=== PATIENT | male | born 1970 | race Hispanic/Latino ===

== ENCOUNTER 2016-06-22 10:04 | Outpatient (CLI) | payer OTHER | END 2016-06-22 10:05 | disposition home or self-care (01) | LOC: MADLAB 10:04 | PROVIDERS: ATTEND Internal Medicine Nephrology | DX: N04.1 Nephrotic syndrome with focal and segmental glomerular lesions (principal); B50.9 Plasmodium falciparum malaria, unspecified; N18.5 Chronic kidney disease, stage 5; R80.9 Proteinuria, unspecified ==

== ENCOUNTER 2016-08-06 08:10 | Outpatient (CLI) | payer OTHER ==
[2016-08-06 08:20] LABS: Mean Corpuscular HGB CONC 34.6 g/dL (32.0-36.0); Mean Corpuscular Hemoglobin 33.1 pg (27.0-31.0); Mean Corpuscular Volume 95.5 fl (80.0-94.0); Mean Platelet Volume 7.5 fL (7.4-10.4); Platelet Count 127 thou/uL (130-400); RBC Distribution Width 11.8 % (11.5-14.5); Red Blood Cell (RBC) Count 3.03 mill/uL (4.70-6.10); White Blood Cell (WBC) Count 3.7 thou/uL (4.8-10.8)
[2016-08-06 08:35] LABS: Albumin 4.3 g/dL (3.5-5.0); Anion Gap 24 mmol/L (10-20); Calc. Creatinine Clearance 0 mL/min (70-130); Carbon Dioxide 17 mmol/L (22-29); Chloride 102 mmol/L (98-107); Estimated GFR-MDRD 4; Glucose 97 mg/dL (70-105); Phosphorus 8.4 mg/dL (2.3-4.7); Potassium 4.5 mmol/L (3.5-5.1); Sodium 138 mmol/L (136-145)
[2016-08-06 09:00] LABS: BUN (Urea Nitrogen) 124 mg/dL (8.9-20.6); BUN/Creatinine Ratio 8.28; Calcium 5.8 mg/dL (7.8-10.44)
== END 2016-08-06 08:11 | disposition home or self-care (01) ==
LOC: MADLAB 08:10
PROVIDERS: ATTEND Internal Medicine Nephrology
DX: I12.0 Hypertensive chronic kidney disease with stage 5 chronic kidney disease or end stage renal disease (principal); N18.5 Chronic kidney disease, stage 5; B50.9 Plasmodium falciparum malaria, unspecified; R80.9 Proteinuria, unspecified
CPT/HCPCS: 36415; 80069; 85027

== ENCOUNTER 2016-08-13 15:31 | Emergency (ER) | payer MEDICAID, OTHER, SELFPAY ==
[2016-08-13 17:34] LABS: Hemoglobin A1c 5.1 % (4.0-6.0)
[2016-08-13 17:39] LABS: ALT (SGPT) 28 U/L (0-55); AST (SGOT) 34 U/L (5-34); Albumin 4.3 g/dL (3.5-5.0); Alkaline Phosphatase 79 U/L (40-150); Anion Gap 24 mmol/L (10-20); Bilirubin, Total 0.5 mg/dL (0.2-1.2); Calc. Creatinine Clearance 0 mL/min (70-130); Carbon Dioxide 18 mmol/L (22-29); Chloride 99 mmol/L (98-107); Estimated GFR-MDRD 4; Globulin 2.7 g/dL (2.4-3.5); Glucose 99 mg/dL (70-105); Lipase 88 U/L (8-78); Potassium 4.9 mmol/L (3.5-5.1); Sodium 136 mmol/L (136-145); Uric Acid 9.3 mg/dL (3.5-7.2)
[2016-08-13 17:45] LABS: Eosinophils 6 % (0-10); Hemoglobin 9.7 g/dL (14.0-18.0); Lymphocytes 34 % (21-51); MDiff Complete? YES; Mean Corpuscular HGB CONC 34.5 g/dL (32.0-36.0); Mean Corpuscular Hemoglobin 32.9 pg (27.0-31.0); Mean Corpuscular Volume 95.4 fl (80.0-94.0); Mean Platelet Volume 8.8 fL (7.4-10.4); Monocytes 8 % (0-10); Neutrophil 49 % (42-75); Platelet Count 121 thou/uL (130-400); RBC Distribution Width 12.1 % (11.5-14.5); Reactive Lymphocytes 3 % (0-10); Red Blood Cell (RBC) Count 2.96 mill/uL (4.70-6.10); White Blood Cell (WBC) Count 3.6 thou/uL (4.8-10.8)
[2016-08-13 17:49] LABS: BUN (Urea Nitrogen) Greater than 125 mg/dL (8.9-20.6); Calcium 5.8 mg/dL (7.8-10.44)
[2016-08-13] MEDS ORDERED: Calcium Gluc 4.6 MEQ/10 ML (100 MG/ML) ONE ×2 (18:21→18:26)
[2016-08-13] MEDS ORDERED: Calcium Carbonate 500 MG ChewTAB ONE (18:28)
[2016-08-13 18:54] LABS: Bilirubin Negative (Negative); Blood, Urine Small (Negative); Clarity Clear (Clear); Glucose, Urine (Dipstick) 100 mg/dL (Negative); Leukocyte Negative (Negative); Nitrite Negative (Negative); Protein, Urine (Dipstick) > or equal to 300 mg/dL (Neg-Trace); Specific Gravity, Urine 1.015 (1.005-1.030); Urobilinogen 0.2 mg/dL (0.2-1.0)
[2016-08-13 19:00] LABS: Bacteria/HPF Rare-Few HPF (None Seen); Other Microscopic Description C&S SET UP; RBC/HPF 0-3 HPF (0-3); Squamous Epithelial 0-3 HPF (0-3); WBC/HPF 0-3 HPF (0-3)
== END 2016-08-13 20:32 | disposition home or self-care (01) ==
LOC: MADERS 15:31
DX: I12.0 Hypertensive chronic kidney disease with stage 5 chronic kidney disease or end stage renal disease (principal); N18.6 End stage renal disease
CPT/HCPCS: 36415; 80053; 81003; 81015; 83036; 83690; 83735; 84550; 85025; 86140; 87086; 99283

== ENCOUNTER 2016-08-16 16:01 | Emergency (ER) | payer MEDICAID, OTHER, SELFPAY ==
[2016-08-16 16:56] LABS: #Basophils 0.1 thou/uL (0.0-0.2); #Eosinphils 0.4 thou/uL (0.0-0.7); #Lymphocytes 1.3 thou/uL (1.20-3.40); #Monocytes 0.3 thou/uL (0.11-0.59); #Neutrophils 1.9 thou/uL (1.40-6.50); %Basophils 1.8 % (0.0-1.0); %Eosinophils 9.6 % (0.0-10.0); %Lymphocytes 32.7 % (21.0-51.0); %Monocytes 8.6 % (0.0-10.0); %Neutrophils 47.4 % (42.0-75.0); Hemoglobin 9.7 g/dL (14.0-18.0); Mean Corpuscular HGB CONC 35.1 g/dL (32.0-36.0); Mean Corpuscular Hemoglobin 32.9 pg (27.0-31.0); Mean Corpuscular Volume 93.8 fl (80.0-94.0); Mean Platelet Volume 8.9 fL (7.4-10.4); Platelet Count 125 thou/uL (130-400); RBC Distribution Width 11.7 % (11.5-14.5); Red Blood Cell (RBC) Count 2.94 mill/uL (4.70-6.10)
[2016-08-16 17:06] LABS: ALT (SGPT) 22 U/L (0-55); AST (SGOT) 27 U/L (5-34); Albumin 4.3 g/dL (3.5-5.0); Alkaline Phosphatase 92 U/L (40-150); Anion Gap 22 mmol/L (10-20); Bilirubin, Total 0.4 mg/dL (0.2-1.2); Calc. Creatinine Clearance 0 mL/min (70-130); Carbon Dioxide 20 mmol/L (22-29); Chloride 100 mmol/L (98-107); Estimated GFR-MDRD 3; Globulin 2.8 g/dL (2.4-3.5); Glucose 112 mg/dL (70-105); Potassium 4.3 mmol/L (3.5-5.1); Protein, Total 7.1 g/dL (6.0-8.3); Sodium 138 mmol/L (136-145)
[2016-08-16 17:40] LABS: Calcium 5.5 mg/dL (7.8-10.44)
[2016-08-16 18:08] LABS: BUN (Urea Nitrogen) 118 mg/dL (8.9-20.6)
== END 2016-08-16 17:14 | disposition short-term general hospital (02) ==
LOC: MADERS 16:01
DX: I12.9 Hypertensive chronic kidney disease with stage 1 through stage 4 chronic kidney disease, or unspecified chronic kidney disease (principal); N18.9 Chronic kidney disease, unspecified
CPT/HCPCS: 80053; 85025; 99285

== ENCOUNTER 2019-12-29 04:59 | Emergency (ER) | payer BC ==
[2019-12-29] MEDS ORDERED: Aspirin Chewable 81 MG TAB ONE (05:38)
[2019-12-29] MEDS ORDERED: Nitroglycerin 2% Ointment 1 INCH/1 GM Packet ONE (05:38)
[2019-12-29 05:54] LABS: PTT 27.3 sec (22.9-36.1); Prothrombin Time 13.1 sec (12.0-14.7)
[2019-12-29 06:02] LABS: ALT (SGPT) 39 U/L (8-55); AST (SGOT) 35 U/L (5-34); Albumin 4.2 g/dL (3.5-5.0); Alkaline Phosphatase 89 U/L (40-110); Anion Gap 21 mmol/L (10-20); BUN (Urea Nitrogen) 34 mg/dL (8.9-20.6); Bilirubin, Total 1.7 mg/dL (0.2-1.2); CK (CPK) 126 U/L (30-200); Calc. Creatinine Clearance 0 mL/min (70-130); Calcium 8.5 mg/dL (7.8-10.44); Carbon Dioxide 28 mmol/L (22-29); Chloride 96 mmol/L (98-107); D-Dimer Test 2.92 *mcg/mL (0.27-0.43); Estimated GFR-MDRD 8; Globulin 2.9 g/dL (2.4-3.5); Glucose 120 mg/dL (70-105); Lipase 56 U/L (8-78); Potassium 4.2 mmol/L (3.5-5.1); Protein, Total 7.1 g/dL (6.0-8.3); Sodium 141 mmol/L (136-145)
[2019-12-29 06:12] LABS: #Basophils 0.1 thou/uL (0.0-0.2); #Eosinphils 0.1 thou/uL (0.0-0.7); #Lymphocytes 1.2 thou/uL (1.20-3.40); #Monocytes 0.4 thou/uL (0.11-0.59); %Basophils 0.9 % (0.0-1.0); %Eosinophils 2.1 % (0.0-10.0); %Monocytes 5.1 % (0.0-10.0); %Neutrophils 73.9 % (42.0-75.0); Band 6 % (5-11); Eosinophils 2 % (0-10); Hemoglobin 11.5 g/dL (14.0-18.0); Lymphocytes 14 % (21-51); MDiff Complete? YES; Mean Corpuscular HGB CONC 33.7 g/dL (32.0-36.0); Mean Corpuscular Hemoglobin 33.4 pg (27.0-31.0); Mean Platelet Volume 9.4 fL (7.4-10.4); Monocytes 6 % (0-10); Neutrophil 72 % (42-75); Platelet Count 70 thou/uL (130-400); RBC Distribution Width 11.6 % (11.5-14.5); Red Blood Cell (RBC) Count 3.44 mill/uL (4.70-6.10); White Blood Cell (WBC) Count 6.8 thou/uL (4.8-10.8)
[2019-12-29 06:21] LABS: CKMB 0.8 ng/mL (0-6.6)
--- NOTE | 2019-12-29 07:09 | RAD ---
SINGLE VIEW CHEST: Date: 12/29/2019 COMPARISON: 12/02/2018. HISTORY: Chest pain and flank pain. FINDINGS: Single view of the chest shows a normal sized cardiomediastinal silhouette. There is no evidence of c onsolidation, mass, or pleural effusion. The bones are unremarkable. IMPRESSION: No evidence of acute cardiopulmonary disease. POS: EAA
[2019-12-29] MEDS ORDERED: Enoxaparin Sodium 100 MG/ML SYRINGE ONE (07:20)
--- NOTE | 2019-12-29 07:22 | CT ---
CT OF THE BRAIN WITHOUT CONTRAST: Date: 12/29/2019 COMPARISON: 08/28/2018. HISTORY: Altered mental status. TECHNIQUE: Multiple contiguous axial images were obtained in a CT of the brain without contrast. Sagittal and co oscar reformats were performed. FINDINGS: The brain is normal in morphology and attenuation without focal lesions or confluent areas of infarct ion. There is no evidence of hydrocephalus, intracranial hemorrhage, or extra-axial fluid collection. The calvarium and overlying soft tissues are unremarkable. The visualized paranasal sinuses and masto id air cells are well aerated. IMPRESSION: No evidence of acute intracranial abnormality. POS: EAA
[2019-12-29] MEDS ORDERED: Sodium Chloride 0.9% 100 ML BAG ONE (07:45)
[2019-12-29] MEDS ORDERED: Morphine 4 MG/ML VIAL ONE (08:52)
--- NOTE | 2019-12-29 09:09 | CT ---
CTA CHEST WITH CONTRAST: Date: 12/29/2019 HISTORY: Chest pain. TECHNIQUE: Multiple contiguous axial images were obtained in a CTA of the chest with contrast per pulmonary embo lism protocol. 3D oblique MIP reformats and direct coronal reformats were performed. FINDINGS: Global cardiomegaly is seen. There is a small pericardial effusion. The pulmonary arteries are well o pacified without filling defects to suggest pulmonary emboli. There are small bilateral pleural effusions. A calcified granuloma is seen in the right upper lobe. N o focal infiltrates are seen. No pneumothorax is seen. Chest wall soft tissues and visualized subdiaphragmatic structures are unremarkable. The bones are un remarkable. IMPRESSION: 1. No evidence of pulmonary thromboembolism. 2. Bilateral pleural effusions. 3. Pericardial effusion. POS: EAA
[2019-12-29] MEDS ORDERED: Iopamidol 370 76% 125 ML VIAL FS ONE (11:47)
== END 2019-12-29 09:09 | disposition short-term general hospital (02) ==
LOC: MADERS 04:59
DX: I31.3 Pericardial effusion (noninflammatory) (principal); R79.9 Abnormal finding of blood chemistry, unspecified; I10 Essential (primary) hypertension; Z79.899 Other long term (current) drug therapy
CPT/HCPCS: 36415; 70450; 71045; 71275; 80053; 82550; 82553; 83690; 84484; 85025; 85379; 85610; 85730; 93005; 96372; 96374; J1650; J2270; J3490; Q9967